=== PATIENT | male | born 1965 | race Caucasian/White ===

== ENCOUNTER 2018-10-01 09:06 | Day surgery (SDC) | payer OTHER ==
[2018-10-01] MEDS ORDERED: LR 1,000 ML IV ONE (09:15)
--- NOTE | 2018-10-01 11:06 | PDGENHP ---
History & Physical Chief Complaint: colon screning History of Present Illness: routine screening Pertinent Past, Social, Family History: no tobacco, alcohol none stoped 30 years ago. FHX no polyps no cc. no sig PMH Relevant Physical Exam: A + Ox3. CTAs. S1S2. +BS soft nt Cardiorespiratory Assessment: class I
--- NOTE | 2018-10-01 11:09 | PDANEPAE ---
ANE Past Medical History - Cardiovascular History Hx Hypertension: No Hx Arrhythmias: No Hx Chest Pain: No Hx Coronary Artery / Peripheral Vascular Disease: No Hx CHF / Valvular Disease: No Hx Palpitations: No - Pulmonary History Hx COPD: No Hx Asthma/Reactive Airway Disease: No Hx Recent Upper Respiratory Infection: No Hx Oxygen in Use at Home: No Hx Sleep Apnea: No Sleep Apnea Screening Result - Last Documented: Negative - Neurologic History Hx Cerebrovascular Accident: No Hx Seizures: No Hx Dementia: No - Endocrine History Hx Diabetes: No - Renal History Hx Renal Disorders: No - Liver History Hx Hepatic Disorders: No - Neurological & Psychiatric Hx Hx Neurological and Psychiatric Disorders: No - Cancer History Hx Cancer: No - Congenital Disorder History Hx Congenital Disorders: No - Other Health History Other Health History: NEG - Chronic Pain History Chronic Pain: No - Surgical History Prior Surgeries: CHILDHOOD - APPENDECTOMY ANE Review of Systems Review of Systems: - Exercise capacity METS (RN): 5 METS ANE Patient History - Allergies Allergies/Adverse Reactions: No Known Allergies Allergy (Unverified 09/23/18 11:23) - Home Medications Home Medications: Herbals/Supplements -Info Only 09/23/18 [Last Taken 1 Week Ago ~09/24/18] - NPO status NPO Since - Liquids (Date): 10/01/18 NPO Since - Liquids (Time): 00:30 NPO Since - Solids (Date): 09/29/18 NPO Since - Solids (Time): 09:00 - Smoking Hx Smoking Status: Never smoked - Family Anes Hx Family Hx Anesthesia Complications: UNK ANE Labs/Vital Signs - Vital Signs Blood Pressure: 107/68 Heart Rate: 56 Respiratory Rate: 18 O2 Sat (%): 98 Height: 167.64 cm Weight: 77.111 kg ANE Physical Exam - Airway Mallampati Score: Class 1 - ASA Status ASA Status: I ANE Anesthesia Plan Total IV Anesthesia: Yes
[2018-10-01] MEDS ORDERED: PROPOFOL/EMULSION 500 MG/50 ML BOTTLE IV ONE (11:11)
[2018-10-01] MEDS ORDERED: fentaNYL 100 MCG/2 ML INJ IVP PRN (11:55)
[2018-10-01] MEDS ORDERED: LR 500 ML IV PRN (11:55)
[2018-10-01] MEDS ORDERED: NALOXONE HCL 0.4 MG/ML INJ IVP PRN (11:55)
[2018-10-01] MEDS ORDERED: ONDANSETRON 4 MG/2 ML VIAL IVP PRN (11:55)
--- NOTE | 2018-10-01 11:57 | POSTANESTH ---
Post Anesthetic Evaluation Cardiovascular Status: Normal, Stable Respiratory Status: Normal, Stable Level of Consciousness/Mental Status: Can Participate in Eval Pain Control: Adequate, Prn Tx Ordered Nausea/Vomiting Control: Adequate, Prn Tx Ordered Complications Possibly Related to Anesthesia: None Noted
--- NOTE | 2018-10-01 12:05 | GIREPORT ---
[facility] Surgical Services - Endoscopy Department Patient Name: Hamlet Pack Procedure Date: 10/01/2018 10:12 AM Patient Type: Outpatient Attending MD/ ER Physician: Oscar Kirk MD Procedure: Colonoscopy Indications: Screening for colorectal malignant neoplasm Providers: Oscar Kirk MD Referring MD: Delbert Pool MD Medicines: Propofol per Anesthesia Complications: No immediate complications. Estimated blood loss: Minimal. Description of Procedure: After obtaining informed consent, the scope was passed under direct vis ion. Throughout the procedure, the patient's blood pressure, pulse, and oxyg en saturations were monitored continuously. The Colonoscope with irrigatio n channel was introduced through the anus and advanced to the terminal il eum, with identification of the appendiceal orifice and IC valve. The colono scopy was performed without difficulty. The patient tolerated the procedure w ell. The quality of the bowel preparation was good. Findings: The digital rectal exam was normal. The terminal ileum appeared normal. A 2 mm polyp was found in the rectum. The polyp was sessile. The polyp was removed with a cold biopsy forceps. Resection and retrieval were comple te. Estimated blood loss was minimal. A 5 mm polyp was found in the distal sigmoid colon. The polyp was sessi le. The polyp was removed with a cold snare. Resection and retrieval were complete. Estimated blood loss was minimal. A 3 mm polyp was found in the recto-sigmoid colon. The polyp was sessil e. The polyp was removed with a piecemeal technique using a cold biopsy forceps. Resection and retrieval were complete. Estimated blood loss wa s minimal. The exam was otherwise without abnormality. Estimated Blood Loss: Estimated blood loss was minimal. Post Op Diagnosis: - The examined portion of the ileum was normal. - One 2 mm polyp in the rectum, removed with a cold biopsy forceps. Res ected and retrieved. - One 5 mm polyp in the distal sigmoid colon, removed with a cold snare . Resected and retrieved. - One 3 mm polyp at the recto-sigmoid colon, removed piecemeal using a cold biopsy forceps. Resected and retrieved. - The examination was otherwise normal. Recommendation: - Await pathology results. - My office will call with the pathology result with 5-7 days. If you h ave not heard from my office by 12-14, do not assume the pathology is nate l, please call [phone] to get the pathology results. - If the pathology report reveals adenomatous tissue, then repeat the colonoscopy for surveillance in 5 years. - If the pathology report reveals no adenomatous tissue, then repeat th e colonoscopy for screening purposes in 10 years. - Patient has a contact number available for emergencies. The signs and symptoms of potential delayed complications were discussed with the pat ient. Return to normal activities tomorrow. Written discharge instructions we re provided to the patient. - Patient medication history reviewed. Patient is appropriately not juan ing any medications. - Discharge patient to home (ambulatory). - Return to primary care physician as previously scheduled. - Thank you for allowing me to help in your patient's care. Do not hesi osullivan to call with any questions. Attending Participation: I personally performed the entire procedure. Yelena Forrester M.D Oscar Kirk MD 10/01/2018 12:04:34 PM This report has been signed electronicallyMatttere Kirk MD Number of Addenda: 0 Note Initiated On: 10/01/2018 10:12 AM [email or web address]
[2018-10-01 12:47] VITALS: BP 120/70
== END 2018-10-01 13:32 | disposition home or self-care (01) ==
LOC: FSGY 09:06
PROVIDERS: ATTEND Internal Medicine Gastroenterology
PROC: 0DBP8ZX Excision of Rectum, Via Natural or Artificial Opening Endoscopic, Diagnostic (ICD-10-PCS; principal; 2018-10-01 10:45)
PROC: 0DBN8ZX Excision of Sigmoid Colon, Via Natural or Artificial Opening Endoscopic, Diagnostic (ICD-10-PCS; principal; 2018-10-01 10:45)
DX: Z12.11 Encounter for screening for malignant neoplasm of colon (principal); K62.1 Rectal polyp; K63.5 Polyp of colon
CPT/HCPCS: J2704